=== PATIENT | male | born 1985 | race Caucasian/White ===

== ENCOUNTER 2017-03-20 13:55 | Outpatient (RCR) | payer OTHER ==
[~2017-03-20 13:55] MED LIST: ACETAMINOPHEN W1 TA6 PO; NEXIUM PO; PERCOCET 325 MG1 TA2 PO; ULTRAM 50MG TAB50 MG PO
== END 2017-05-26 ==
LOC: WSOH
DX: M25.561 Pain in right knee (principal); W01.0XXA Fall on same level from slipping, tripping and stumbling without subsequent striking against object, initial encounter; Y99.0 Civilian activity done for income or pay

== ENCOUNTER 2021-09-19 09:12 | Day surgery (SDC) | payer OTHER ==
[~2021-09-19] VITALS: Ht 195.6 cm; Wt 132.5 kg
[2021-09-19] VITALS (7 sets, daily range): BP systolic 125–143; BP diastolic 70–84; PULSE 69–73; TEMP 97.8–98.5
--- NOTE | 2021-09-19 08:25 | NUR ---
Patient ambulated back to [facility] without difficulty. Vitals obtained. Consent reviewed and signed. Labs drawn. SEE PHYSICAL ASSESSMENT. Side rails x2. Call neff is at bedside.
[~2021-09-19 09:12] MED LIST changes: +LIORESAL 1010 MG/TAB PO
[2021-09-19 09:17] LABS: BASO # 0.1 K/mm3 (0.0-0.2); BASO % 1.1 % (0.0-2.0); EOS # 0.6 K/mm3 (0.0-0.7); EOS % 4.7 % (0-4.0); GRAN # 6.4 K/mm3 (1.4-6.5); GRAN % 52.8 % (42.2-75.2); HEMATOCRIT 46.6 % (42.0-52.0); HEMOGLOBIN 16.5 g/dl (13.5-18.0); LYMPH # 3.9 K/mm3 (1.2-3.4); LYMPH % 32.4 % (20.0-51.0); MEAN CELL VOLUME 90 fl (80.0-100.0); MEAN CORPUSCULAR HEMOGLOBIN 32 pg (27.0-31.0); MEAN CORPUSCULAR HGB CONC 35 g/dl (33.0-37.0); MEAN PLATELET VOLUME 9.5 fl (7.4-10.4); MONO % 8.4 % (1.7-9.3); PLATELET COUNT 502 K/mm3 (130-400); RED BLOOD COUNT 5.17 M/mm3 (4.20-5.60); REDCELL DISTRIBUTION WIDTH-CV 14.2 % (11.5-14.5)
[2021-09-19 09:51] LABS: ALBUMIN 4.3 gm/dL (3.5-5.0); BILIRUBIN,TOTAL 0.3 mg/dL (0.2-1.2); CALCIUM 9.7 mg/dL (8.4-10.2); CREATININE, serum 0.89 mg/dL (0.72-1.25); TOTAL PROTEIN 7.1 gm/dL (6.2-8.1)
--- NOTE | 2021-09-19 11:15 | NUR ---
Patient was taken back to the OR by [facility].
[2021-09-19] MEDS ORDERED: ULTRAM 50MG TAB50 MG PO (13:34)
--- NOTE | 2021-09-19 16:19 | NUR ---
PT, c/o pain to abd at 04/12, called [facility] card he recommended to give IV morphine, provided and will cnotinue to monitor. ABD sites are [facility] and [place] at [facility] sites.
--- NOTE | 2021-09-19 18:34 | NUR ---
Pt feeling much better after receiving 1 dose of IV pain meds, able to get up and walk around and passing gas. [facility], [facility]. Note given for to care for pt at [facility]. INT dc'd, tip intact. Reviewed packet, answered all questions. Pt requesitng to talk to social work, able to give number for medical floor to talk to social work tomorrow when they are here. Pt left with all belongings, escorted out by medical staff. Family to drive home, criteria met.
== END 2021-09-19 18:37 | disposition home or self-care (01) ==
LOC: SDCO 09:12 → MEDICAL 16:06 → SDCO 18:37
PROVIDERS: Surgery
DX: K43.2 Incisional hernia without obstruction or gangrene (principal); K66.0 Peritoneal adhesions (postprocedural) (postinfection); K21.9 Gastro-esophageal reflux disease without esophagitis; G47.00 Insomnia, unspecified; E78.2 Mixed hyperlipidemia; G47.33 Obstructive sleep apnea (adult) (pediatric); M17.11 Unilateral primary osteoarthritis, right knee; K73.9 Chronic hepatitis, unspecified; F32.A Depression, unspecified; F17.210 Nicotine dependence, cigarettes, uncomplicated; F43.10 Post-traumatic stress disorder, unspecified; Z79.899 Other long term (current) drug therapy; Z91.19 Patient's noncompliance with other medical treatment and regimen; Z83.3 Family history of diabetes mellitus
CPT/HCPCS: OP; C1781; J1100; J1170; J1885; J2250; J2270; J2405; J2704; J3010; J7120